=== PATIENT | male | born 1955 | race African-American/Black ===

== ENCOUNTER 2016-10-17 10:04 | Emergency (ER) | payer OTHER, BC ==
[~2016-10-17] VITALS: Ht 188 cm; Wt 122.5 kg
[2016-10-17 10:05] VITALS: BP_SYST 138
[2016-10-17] MEDS ORDERED: NACL 0.9% 1,000 ML IV SCH (10:11)
[2016-10-17] MEDS ORDERED: PREDNISONE 20 MG TABLET PO ONE (10:15)
[2016-10-17] MEDS ORDERED: IPRATROPIUM BROM 0.5 MG/2.5 ML VIAL.NEB (ATROVENT) IH ONE (10:15)
[2016-10-17] MEDS ORDERED: ALBUTEROL SULFATE 0.083% 2.5 MG/3 ML VIAL.NEB IH ONE (10:15)
[2016-10-17] MEDS ORDERED: ACETAMINOPHEN 500 MG TABLET PO ONE (10:30)
[2016-10-17 10:37] LABS: BASOPHILS # (AUTO) 0.1 K/uL (0.0-0.2); EOSINOPHILS % (AUTO) 0.1 % (0.0-4.0); HEMATOCRIT 37.8 % (36-54); HEMOGLOBIN 12.5 g/dL (14.0-18.0); LYMPHOCYTES # (AUTO) 1.4 K/uL (1.0-5.5); LYMPHOCYTES % (AUTO) 13.9 % (20.5-51.5); MEAN CORPUSCULAR HEMOGLOBIN 26 pg (27-31); MEAN CORPUSCULAR HGB CONC 33 % (32-36); MEAN CORPUSCULAR VOLUME 79 fL (79.0-98.0); MONOCYTES # (AUTO) 0.7 K/uL (0.0-1.0); PLATELET COUNT (AUTO) 271 K/uL (130-430); RED CELL DISTRIBUTION WIDTH 13.8 % (9.0-15.0); WHITE BLOOD COUNT (AUTO) 10.2 K/uL (4.8-10.8)
[2016-10-17 11:00] LABS: PROTHROMBIN TIME 11.3 SECS (9.5-12.5)
[2016-10-17 11:02] LABS: CALCIUM 9.4 mg/dL (8.4-11.0); CREATININE 1.73 mg/dL (0.55-1.30); POTASSIUM 3.8 mmol/L (3.5-5.1)
[2016-10-17 11:07] LABS: ALBUMIN 4.6 g/dL (3.4-4.8); TOTAL BILIRUBIN 0.6 mg/dL (0.0-1.0); TOTAL PROTEIN, SERUM 8.8 g/dL (6.4-8.3)
[2016-10-17] MEDS ORDERED: FERR-57 PO (11:21)
[2016-10-17] MEDS ORDERED: BUDE6HFA INH (11:21)
[2016-10-17] MEDS ORDERED: LATA2.5D6 OP (11:21)
[2016-10-17] MEDS ORDERED: FAMO40TA7 PO (11:21)
[2016-10-17] MEDS ORDERED: IPRA4AER INH (11:21)
[2016-10-17] MEDS ORDERED: MONT10TA25 PO (11:21)
[2016-10-17] MEDS ORDERED: ALBMDI INH (11:21)
[2016-10-17] MEDS ORDERED: NOR10 PO (11:21)
[2016-10-17 11:56] VITALS: BP_SYST 146
== END 2016-10-17 11:56 | disposition home or self-care (01) ==
LOC: SED 10:04
DX: J44.9 Chronic obstructive pulmonary disease, unspecified (principal); K21.9 Gastro-esophageal reflux disease without esophagitis; I10 Essential (primary) hypertension
CPT/HCPCS: 36415; 71010; 80053; 83605; 83880; 84484; 85025; 85610; 85730; 87040; 93005; 94640; 96360; 99285; J7030; J7512

== ENCOUNTER 2019-01-22 16:51 | Inpatient (IN) | payer OTHER ==
[~2019-01-22] VITALS: Ht 190.5 cm; Wt 127.2 kg
[~2019-01-22 16:51] MED LIST: ALBMDI INH; BUDE6HFA INH; FAMO40TA7 PO; FERR-57 PO; FLUT1BLS3 INH; FURO-150 PO; IPRA4AER INH; MONT10TA25 PO; NOR10 PO; POTA20TA83 PO; XALEYE OP
[2019-01-22 16:57] VITALS: BP_SYST 130
--- NOTE | 2019-01-22 16:57 | NUR ---
Placed in room 1. Placed on property assessment monitor, blood pressure machine and pulse oximeter. To gown for exam. Side rails up. Report given to Drew LIM.
--- NOTE | 2019-01-22 17:00 | NUR ---
EKG performed at by ADAN. Physician given copy of EKG for review.
--- NOTE | 2019-01-22 17:02 | NUR ---
Pt c/o to ED c/o SOB x 2 wks.Pt febrile, h/o COPD,HTN.
[2019-01-22] MEDS ORDERED: NACL 0.9% 2,000 ML IV ONE (17:06)
--- NOTE | 2019-01-22 17:06 | NUR ---
ER at bedside examining patient.
[2019-01-22] MEDS ORDERED: ACETAMINOPHEN 500 MG TABLET PO ONE (17:15)
[2019-01-22] MEDS ORDERED: IPRATROPIUM/ALBUTEROL SULFATE 3 ML AMPUL.NEB (DUONEB) INH ONE (17:15)
[2019-01-22 17:36] LABS: BASOPHILS # (AUTO) 0.1 K/uL (0.0-0.2); EOSINOPHILS # (AUTO) 0.2 K/uL (0.0-0.4); EOSINOPHILS % (AUTO) 1.2 % (0.0-4.0); HEMOGLOBIN 12.3 g/dL (14.0-18.0); LYMPHOCYTES # (AUTO) 1.5 K/uL (1.0-5.5); LYMPHOCYTES % (AUTO) 11.6 % (20.5-51.5); MEAN CORPUSCULAR HEMOGLOBIN 26 pg (27-31); MEAN CORPUSCULAR HGB CONC 33 % (32-36); MEAN CORPUSCULAR VOLUME 81 fL (79.0-98.0); MONOCYTES # (AUTO) 0.7 K/uL (0.0-1.0); MONOCYTES % (AUTO) 5.5 % (1.7-9.3); NEUTROPHILS # (AUTO) 10.6 K/uL (1.8-7.7); NEUTROPHILS % (AUTO) 80.7 % (40.0-70.0); PLATELET COUNT (AUTO) 331 K/uL (130-430); RED BLOOD CELL COUNT(AUTO) 4.69 MIL/uL (4.2-6.2); RED CELL DISTRIBUTION WIDTH 14.3 % (9.0-15.0); WHITE BLOOD COUNT (AUTO) 13.1 K/uL (4.8-10.8)
[2019-01-22 17:48] LABS: CALCIUM 9.9 mg/dL (8.4-11.0); CREATININE 1.12 mg/dL (0.55-1.30); POTASSIUM 3.5 mmol/L (3.5-5.1)
[2019-01-22 17:51] LABS: INR 0.9 (0.80-1.20); PROTHROMBIN TIME 9.5 SECS (9.5-12.5)
[2019-01-22 18:04] LABS: ALBUMIN 4.3 g/dL (3.4-4.8); TOTAL BILIRUBIN 0.4 mg/dL (0.0-1.0)
[2019-01-22] MEDS ORDERED: TRIA15CR3 TP (18:14)
[2019-01-22] MEDS ORDERED: FERR325T22 PO (18:14)
--- NOTE | 2019-01-22 18:14 | NUR ---
Medication reconciliation completed based upon list provided by family.
[2019-01-22] MEDS ORDERED: cefTRIAXone 1 GM in D5W 50 ML IV ONE (18:30)
[2019-01-22] MEDS ORDERED: AZITHROMYCIN 500 MG in NS 250 ML IV ONE (18:30)
[2019-01-22] MEDS ORDERED: cefTRIAXone 1 GM VIAL ONE (18:41)
[2019-01-22] MEDS ORDERED: AZITHROMYCIN 500 MG/VIAL (ZITHROMAX) IV ONE (18:42)
[2019-01-22] MEDS ORDERED: methylPREDNISolone SOD SUCC/PF 62.5 MG/ML VIAL IVP ONE (19:15)
[2019-01-22 20:05] LABS: BILIRUBIN,URINE NEGATIVE (NEGATIVE); BLOOD, URINE NEGATIVE (NEGATIVE); CLARITY/URINE CLEAR (CLEAR); COLOR,URINE YELLOW (YELLOW); GLUCOSE,URINE NEGATIVE (NEGATIVE); KETONES,URINE NEGATIVE (NEGATIVE); LEUKOCYTE ESTERASE ,URINE NEGATIVE (NEGATIVE); NITRITE, URINE NEGATIVE (NEGATIVE); PROTEIN URINE NEGATIVE (NEGATIVE); UROBILINOGEN,URINE 0.2 (0.2-1.0)
--- NOTE | 2019-01-22 20:09 | NUR ---
Patient will be admitted to care of Dr. Price. Admitted to telemetry unit. Will go to room 110B. Belongings list completed. Summary report printed. Report will be given at bedside.
--- NOTE | 2019-01-22 20:16 | NUR ---
ADMISSION: The patient, BROOK MUELLER, 63 y/o, M admitted by ERIC HOOKS MD,with the diagnosis of COPD EXACERBATION AND PNEUMONIA to 110 B , was given written information regarding hospital policies, unit procedures and contact persons.
--- NOTE | 2019-01-22 20:25 | NUR ---
Transfer to 110b via ACLS protocol. Licensed nurse present. IV present no signs or symptoms of infiltration.
[2019-01-22 20:27] VITALS: BP_SYST 134
[2019-01-22 20:32] VITALS: BP_SYST 138
--- NOTE | 2019-01-22 21:24 | NUR ---
DR. HOOKS CALLED REGARDING PT. ORDERED THAT ATTENDING DOCTOR BE CHANGED TO DR. LUI. NEW ORDERS RECEIVED FOR PT. WILL CARRY OUT.
[2019-01-22] MEDS ORDERED: ACETAMINOPHEN 325 MG TABLET PO PRN (21:30)
[2019-01-22] MEDS: methylPREDNISolone SOD SUCC/PF 62.5 MG/ML VIAL IVP SCH (22:10)
[2019-01-22] MEDS: ALBUTEROL SULFATE 0.083% 2.5 MG/3 ML VIAL.NEB INH PRN (22:21)
[2019-01-22] MEDS: IPRATROPIUM BROM 0.5 MG/2.5 ML VIAL.NEB (ATROVENT) INH PRN (22:21)
[2019-01-22] MEDS: ZOLPIDEM TARTRATE 5 MG TABLET PO PRN (22:43)
--- NOTE | 2019-01-22 22:43 | NUR ---
[facility] PT REQUESTING A SLEEP AID. AMBIEN 5 MG PO ADMINISTERED. MEDICATION ACTION AND POTENTIAL SIDE EFFECTS EXPLAINED TO PT. PT VERBALIZED UNDERSTANDING. PT ENCOURAGED TO CALL FOR ANY ASSISTANCE. SAFETY PRECAUTIONS ARE IN PLACE: BED IS LOCKED IN LOWEST POSITION, SIDE RAILS UP X2, CALL LIGHT IS WITH PT. WILL MONITOR.
[2019-01-22 23:20] VITALS: BP_SYST 138
--- NOTE | 2019-01-23 01:05 | NUR ---
RN ROUNDS PT IS RESTING IN BED WITH EYES CLOSED. VISIBLE SYMMETRICAL RISE AND FALL OF CHEST TO O2 AT 2L VIA NC, BREATHING IS UNLABORED. A SNORE CAN BE HEARD. NO S/S OF ACUTE DISTRESS. NO SIGNS OF PAIN OR DISCOMFORT. SAFETY PRECAUTIONS ARE IN PLACE. WILL MONITOR.
[2019-01-23 01:37] VITALS: BP_SYST 144
--- NOTE | 2019-01-23 03:08 | NUR ---
SLEEPING PT RESTING IN BED WITH EYES CLOSED. PT APPEARS COMFORTABLE. VISIBLE RISE AND FALL OF CHEST, BREATHING IS UNLABORED. NO S/S OF DISTRESS. SAFETY PRECAUTIONS IN PLACE. WILL MONITOR.
[2019-01-23] MEDS: methylPREDNISolone SOD SUCC/PF 62.5 MG/ML VIAL IVP SCH ×2 (05:04→14:22)
--- NOTE | 2019-01-23 05:08 | NUR ---
SCHEDULED SOLU-MEDROL PT GIVEN SCHEDULED SOLU-MEDROL IVP. IV IS PATENT AND FLUSHES WELL. NO S/S OF ACUTE DISTRESS. PT DENIES PAIN OR DISCOMFORT. SAFETY PRECAUTIONS OBSERVED. WILL MONITOR.
--- NOTE | 2019-01-23 06:20 | NUR ---
CLOSING NOTE PT RESTING IN BED, NO S/S OF ACUTE DISTRESS, BREATHING IS UNLABORED TO O2 AT 2L VIA NC, VISIBLE SYMMETRICAL RISE AND FALL OF CHEST. ALL NEEDS MET DURING SHIFT. SAFETY MAINTAINED. WILL CONTINUE TO MONITOR UNTIL PT CARE IS ENDORSED TO DAY SHIFT RN.
[2019-01-23 07:45] LABS: BASOPHILS % (AUTO) 0.2 % (0.0-2.0); HEMATOCRIT 37.4 % (36-54); LYMPHOCYTES # (AUTO) 0.9 K/uL (1.0-5.5); LYMPHOCYTES % (AUTO) 7.4 % (20.5-51.5); MEAN CORPUSCULAR HEMOGLOBIN 27 pg (27-31); MEAN CORPUSCULAR HGB CONC 32 % (32-36); MEAN CORPUSCULAR VOLUME 82 fL (79.0-98.0); MONOCYTES # (AUTO) 0.1 K/uL (0.0-1.0); MONOCYTES % (AUTO) 0.7 % (1.7-9.3); NEUTROPHILS # (AUTO) 11.7 K/uL (1.8-7.7); NEUTROPHILS % (AUTO) 91.7 % (40.0-70.0); PLATELET COUNT (AUTO) 323 K/uL (130-430); RED BLOOD CELL COUNT(AUTO) 4.54 MIL/uL (4.2-6.2); WHITE BLOOD COUNT (AUTO) 12.8 K/uL (4.8-10.8)
[2019-01-23 08:03] VITALS: BP_SYST 155
[2019-01-23] MEDS: PANTOPRAZOLE SODIUM 40 MG TAB PO SCH (08:08)
[2019-01-23] MEDS: amLODIPine BESYLATE 10 MG TABLET PO SCH (08:08)
[2019-01-23] MEDS: FUROSEMIDE 20 MG TABLET PO SCH (08:09)
--- NOTE | 2019-01-23 08:10 | NUR ---
OPENING NOTE patient is resting in bed A&O x4, patient denies any acute distress or pain, no sob, breathing is even and unlabored on room air, educated patient on plan of care and call light system, will continue to monitor, safety precautions in place, call light within reach.
[2019-01-23 08:12] LABS: CALCIUM 9.1 mg/dL (8.4-11.0); CREATININE 1.32 mg/dL (0.55-1.30)
[2019-01-23 08:13] LABS: ALBUMIN 3.6 g/dL (3.4-4.8); TOTAL BILIRUBIN 0.4 mg/dL (0.0-1.0)
[2019-01-23] MEDS: IPRATROPIUM BROM 0.5 MG/2.5 ML VIAL.NEB (ATROVENT) INH PRN (08:22)
[2019-01-23] MEDS: ALBUTEROL SULFATE 0.083% 2.5 MG/3 ML VIAL.NEB INH PRN (08:23)
--- NOTE | 2019-01-23 10:16 | NUR ---
ROUNDS DR. Hernandez talking to patient and family in room at this time.
--- NOTE | 2019-01-23 12:11 | NUR ---
NOTES patient resting in bed eating lunch, patient denies any acute distress or sob at this time, breathing is even and unlabored on room air, will continue to monitor, safety precautions in place, call light within reach.
[2019-01-23 12:31] VITALS: BP_SYST 131
--- NOTE | 2019-01-23 13:52 | NUR ---
CONSULT PULMONOLOGY COPD DR NGO [phone] S/W JULIEN EXCHANGE
--- NOTE | 2019-01-23 14:30 | NUR ---
NOTES patient resting in chair at bedside playing on ipad, patient denies any acute distress or pain, breathing is even and unlabored on room air, will continue to monitor, safety precautions in place, call light within reach, family at bedside.
[2019-01-23 16:15] VITALS: BP_SYST 132
--- NOTE | 2019-01-23 16:22 | NUR ---
NOTES patient is resting in bed talking to family, patient denies any acute distress or sob, breathing is even and unlabored on room air, will continue to monitor, safety precautions in place, and daughter at bedside, call light within reach.
--- NOTE | 2019-01-23 18:42 | NUR ---
CLOSING NOTE patient is resting in bed A&O x4, patient denies any acute distress or pain, breathing is even and unlabored on room air, IVPB infusing as ordered, all needs were met throughout shift, will endorse report to oncoming nurse, safety precautions in place, call light within reach.
[2019-01-23] MEDS ORDERED: AZITHROMYCIN 500 MG in NS 250 ML IV SCH (19:00)
[2019-01-23] MEDS: IPRATROPIUM/ALBUTEROL SULFATE 3 ML AMPUL.NEB (DUONEB) INH SCH (19:22)
--- NOTE | 2019-01-23 19:39 | NUR ---
Pt was received lying in bed fully awake, alert and oriented x4. No acute distress noted at this time. Saline lock in LAC is without any signs of infiltration. Fall and safety precautions are in place.
[2019-01-23 20:00] VITALS: BP_SYST 129
[2019-01-23] MEDS ORDERED: cefTRIAXone 1 GM in D5W 50 ML IV SCH (20:00)
[2019-01-23] MEDS: methylPREDNISolone SOD SUCC 40 MG/ML VIAL IVP SCH (21:20)
[2019-01-23] MEDS: HEPARIN SODIUM,PORCINE 5000 UNITS/ML VIAL SUBCUT SCH (21:23)
--- NOTE | 2019-01-23 21:23 | NUR ---
HS medications administered and pt instructed not to rub the SQ Heparin site due to bruising. Pt verbalized understanding.
[2019-01-23] MEDS: ZOLPIDEM TARTRATE 5 MG TABLET PO PRN (23:28)
--- NOTE | 2019-01-23 23:28 | NUR ---
Ambien 5mg was given po per pt's request for sleep. Call light is with pt and bed is in the lowest and locked positions. Pt was instructed to call for assistance before getting out of bed if dizzy or drowsy and pt verbalized understanding. Oxygen on 2L/min applied to pt's nares per his request.
[2019-01-24] MEDS: IPRATROPIUM/ALBUTEROL SULFATE 3 ML AMPUL.NEB (DUONEB) INH SCH ×3 (01:00→13:27)
--- NOTE | 2019-01-24 02:36 | NUR ---
Pt is sleeping without any distress noted. Call light is with pt and bed is in the lowest and locked positions.
[2019-01-24 02:39] VITALS: BP_SYST 136
--- NOTE | 2019-01-24 04:30 | NUR ---
Pt is sleeping comfortably in bed. Saline lock is intact in LAC.
[2019-01-24] MEDS: methylPREDNISolone SOD SUCC 40 MG/ML VIAL IVP SCH (06:06)
[2019-01-24 06:14] LABS: BASOPHILS % (AUTO) 0.1 % (0.0-2.0); HEMATOCRIT 35.2 % (36-54); HEMOGLOBIN 11.3 g/dL (14.0-18.0); LYMPHOCYTES % (AUTO) 4.4 % (20.5-51.5); MEAN CORPUSCULAR HEMOGLOBIN 26 pg (27-31); MEAN CORPUSCULAR HGB CONC 32 % (32-36); MEAN CORPUSCULAR VOLUME 82 fL (79.0-98.0); MONOCYTES # (AUTO) 0.6 K/uL (0.0-1.0); MONOCYTES % (AUTO) 2.5 % (1.7-9.3); NEUTROPHILS # (AUTO) 21.2 K/uL (1.8-7.7); PLATELET COUNT (AUTO) 345 K/uL (130-430); RED CELL DISTRIBUTION WIDTH 14.1 % (9.0-15.0); WHITE BLOOD COUNT (AUTO) 22.8 K/uL (4.8-10.8)
--- NOTE | 2019-01-24 06:49 | NUR ---
Pt is awake and alert. No c/o pain or discomfort at this time. Saline lock in LAC is without any signs of infiltration. Will endorse to day shift nurse.
[2019-01-24 06:57] LABS: CALCIUM 9.2 mg/dL (8.4-11.0); CREATININE 1.15 mg/dL (0.55-1.30); POTASSIUM 4.3 mmol/L (3.5-5.1)
[2019-01-24 08:02] VITALS: BP_SYST 143
--- NOTE | 2019-01-24 08:10 | NUR ---
OPENING NOTE patient is resting in bed A&O x4, patient denies any acute distress or pain, no sob, breathing is even and unlabored on 2L nasal cannula, educated patient on plan of care and call light system, will continue to monitor, safety precautions in place, call light within reach.
[2019-01-24] MEDS: PANTOPRAZOLE SODIUM 40 MG TAB PO SCH (08:19)
[2019-01-24] MEDS: FUROSEMIDE 20 MG TABLET PO SCH (08:19)
[2019-01-24] MEDS: amLODIPine BESYLATE 10 MG TABLET PO SCH (08:20)
[2019-01-24] MEDS: HEPARIN SODIUM,PORCINE 5000 UNITS/ML VIAL SUBCUT SCH (08:21)
[2019-01-24] MEDS ORDERED: methylPREDNISolone SOD SUCC 40 MG/ML VIAL IVP SCH (09:00)
--- NOTE | 2019-01-24 10:40 | NUR ---
NOTES patient talking on phone at this time, patient denies any acute distress or pain, breathing is even and unlabored on room air, will continue to monitor, safety precautions in place, call light within reach.
--- NOTE | 2019-01-24 12:52 | NUR ---
NOTES patient is talking to family in bed, patient denies any acute distress or pain, no sob at this time, breathing is even and unlabored on room air, will continue to monitor, safety precautions in place, call light within reach.
[2019-01-24 14:06] VITALS: BP_SYST 126
--- NOTE | 2019-01-24 14:51 | NUR ---
NOTES patient watching tv, patient denies any acute distress or pain, breathing is even and unlabored on room air, will continue to monitor, safety precautions in place, call light within reach.
[2019-01-24 16:08] VITALS: BP_SYST 129
--- NOTE | 2019-01-24 16:32 | NUR ---
SPOKE TO DR. HALL PER , PATIENT IS CLEARED TO BE DISCHARGED HOME AND TO FOLLOW UP WITH TRANSCRIPTION.
[2019-01-24 16:45] VITALS: BP_SYST 129
[2019-01-24] MEDS ORDERED: AUG875 PO (16:52)
[2019-01-24] MEDS ORDERED: PRED20TA PO (16:52)
--- NOTE | 2019-01-24 17:15 | NUR ---
D/C Patient Patient given medication reconciliation form and D/C instructions. Exit Care provided. Patient verbalized understanding. MD discussed with patient the results and treatment provided. Ambulatory with steady gait for discharge to home. Patient in stable condition, ID band removed. IV catheter removed, intact and dressing applied, no active bleeding. Rx of augmentin and prednisone given. Patient educated on pain management. All belongings sent with patient.
--- NOTE | 2019-01-24 20:15 | NUR ---
OF THE PATIENT CALLED REGARDING HOME MEDS MRS MUELLER CALLED AND VERY UPSET BECAUSE SHE FOUND OUT THAT THE PATIENT HOME MED LIST IS INCOMPLETE. SHE SAID THAT SHE GAVE THE LIST TO RN IN THE EMERGENCY ROOM AND STILL MED LIST IS NOT UPDATED. WANTS TO KNOW IF THE PATIENT NEEDS TO CONTINUE THE POTTASIUM 20MEQ ER PO DAILY. NOTIFIED DR LUI AND MADE AWARE ABOUT THE MEDS NOT ON THE LIST, HE SAID TO CONTINUE THE POTTASIUM, MRS. MUELLER MADE AWARE.
--- NOTE | 2019-02-07 11:14 | NUR ---
DISCHARGE FOLLOW UP PHONE CALL ALYSA/HEDY TECH PHONED PATIENT, [phone]. 3 CALLS ATTEMPTED AND UNABLE TO GET A HOLD OF PATIENT. LEFT VOICEMAILS ON 01/29/19, 02/06/19, 02/07/19.
--- NOTE | 2019-02-08 11:43 | NUR ---
DISCHARGE FOLLOW UP PHONE CALL CM/HEDY PUENTES PHONED PATIENT. PATIENT STATED HE IS FEELING BETTER. HE HAS NO QUESTIONS ABOUT HIS DISCHARGE INSTRUCTIONS. HE FILLED HIS PRESCRIPTION AND TOOK THEM INSTRUCTED. HE HAS NOT FOLLOWED UP WITH HIS PCP BUT WILL BE CALLING, NEEDS NO HELP SETTING UP APPOINTMENT WILL CALL IF NEEDING ASSISTANCE. HE HAS NO QUESTIONS OR CONCERNS. HE WILL CALL HOSPITAL IF HE HAS QUESTIONS IN THE FUTURE.
== END 2019-01-24 17:15 | disposition home or self-care (01) | DRG 189 ==
LOC: SED 16:51 → STU 19:40 → SMU 01-23 11:18
PROVIDERS: ADMIT Internal Medicine Hospice and Palliative Medicine; ATTEND Internal Medicine Hospice and Palliative Medicine
DX: J96.20 Acute and chronic respiratory failure, unspecified whether with hypoxia or hypercapnia (principal); J44.1 Chronic obstructive pulmonary disease with (acute) exacerbation; R65.10 Systemic inflammatory response syndrome (SIRS) of non-infectious origin without acute organ dysfunction; J44.0 Chronic obstructive pulmonary disease with (acute) lower respiratory infection; I10 Essential (primary) hypertension; Z79.899 Other long term (current) drug therapy; K21.9 Gastro-esophageal reflux disease without esophagitis; F12.20 Cannabis dependence, uncomplicated; Z99.81 Dependence on supplemental oxygen; M19.90 Unspecified osteoarthritis, unspecified site; Z87.442 Personal history of urinary calculi; Z86.011 Personal history of benign neoplasm of the brain; Z87.891 Personal history of nicotine dependence
CPT/HCPCS: 36415; 71045; 80048; 80053; 81003; 83605; 84484; 85025; 85610-TC; 85730-TC; 87040-TC; 87086; 93005; 94640; 94760; 96361; 96365; 96367; 96375; 99285; G0378; J0456; J0696; J1030; J1644; J2930; J7030; J7050; J7060; J7613; J7620

== ENCOUNTER 2019-05-22 21:28 | Emergency (ER) | payer OTHER ==
[~2019-05-22] VITALS: Ht 190.5 cm; Wt 131.5 kg
[~2019-05-22 21:28] MED LIST changes: -ALBMDI INH; +AUG875 PO; -BUDE6HFA INH; -FERR-57 PO; -FLUT1BLS3 INH; -IPRA4AER INH; -MONT10TA25 PO; -POTA20TA83 PO; +PRED20TA PO; -XALEYE OP
[2019-05-22 21:30] VITALS: BP_SYST 158
--- NOTE | 2019-05-22 21:30 | NUR ---
Patient triaged and placed in waiting room. VSS and patient appears in no acute distress at this time. Accompanied by FAM MEMBER, awaiting available bed, and MD notified of need for MSE.
[2019-05-22] MEDS ORDERED: IPRATROPIUM/ALBUTEROL SULFATE 3 ML AMPUL.NEB (DUONEB) INH ONE (22:00)
--- NOTE | 2019-05-22 22:00 | NUR ---
Placed in room 6 . Placed on security monitor, blood pressure machine and pulse oximeter. To gown for exam. Side rails up. Report given to ESTHER LIM.
--- NOTE | 2019-05-22 22:00 | NUR ---
ER at bedside examining patient.
--- NOTE | 2019-05-22 22:10 | NUR ---
Pt brought in by . Pt awake, alert, oriented x4. Pt states that he has had exacerbation of respiratory issue that he has pre-existing. Pt states shortness of breath, fast breathing. Pt denies chest pain, nausea, vomiting, diarrhea. Pt denies any other medical complaint at this time. Pt resting in ED bed comfortably, no acute distress noted at this time. VSS
[2019-05-22 22:37] LABS: BASOPHILS # (AUTO) 0.1 K/uL (0.0-0.2); BASOPHILS % (AUTO) 0.9 % (0.0-2.0); EOSINOPHILS # (AUTO) 0.2 K/uL (0.0-0.4); EOSINOPHILS % (AUTO) 1.3 % (0.0-4.0); HEMATOCRIT 37.3 % (36-54); HEMOGLOBIN 12.1 g/dL (14.0-18.0); LYMPHOCYTES # (AUTO) 1.7 K/uL (1.0-5.5); LYMPHOCYTES % (AUTO) 13.7 % (20.5-51.5); MEAN CORPUSCULAR HEMOGLOBIN 27 pg (27-31); MEAN CORPUSCULAR HGB CONC 33 % (32-36); MEAN CORPUSCULAR VOLUME 82 fL (79.0-98.0); MONOCYTES # (AUTO) 0.8 K/uL (0.0-1.0); MONOCYTES % (AUTO) 6.4 % (1.7-9.3); NEUTROPHILS # (AUTO) 9.5 K/uL (1.8-7.7); NEUTROPHILS % (AUTO) 77.7 % (40.0-70.0); PLATELET COUNT (AUTO) 288 K/uL (130-430); RED BLOOD CELL COUNT(AUTO) 4.57 MIL/uL (4.2-6.2); RED CELL DISTRIBUTION WIDTH 13.9 % (9.0-15.0); WHITE BLOOD COUNT (AUTO) 12.2 K/uL (4.8-10.8)
[2019-05-22 22:49] LABS: ANION GAP 5 (5-15); CALCIUM 9.2 mg/dL (8.4-11.0); CHLORIDE 103 mmol/L (98-107); CREATININE 1.17 mg/dL (0.55-1.30); GLUCOSE 122 mg/dL (70-99); POTASSIUM 3.6 mmol/L (3.5-5.1); SODIUM SERUM 139 mmol/L (136-145); UREA NITROGEN, BLOOD 14 mg/dL (8-21)
[2019-05-22 22:58] LABS: ALANINE AMINOTRANSFERASE 33 U/L (12-78); ALBUMIN 4.4 g/dL (3.4-4.8); ASPARTATE AMINOTRANSFERASE 21 U/L (10-37); TOTAL BILIRUBIN 0.4 mg/dL (0.0-1.0)
[2019-05-22 23:02] LABS: GFR AFRICAN AMERICAN 80 mL/min (>90)
--- NOTE | 2019-05-22 23:45 | NUR ---
Pt awake, alert, oriented. No acute distress noted at this time
[2019-05-23] MEDS ORDERED: methylPREDNISolone SOD SUCC/PF 62.5 MG/ML VIAL IM ONE (00:30)
[2019-05-23 01:40] VITALS: BP_SYST 150
--- NOTE | 2019-05-23 01:40 | NUR ---
Patient given written and verbal discharge instructions and verbalizes understanding. ER MD discussed with patient the results and treatment provided. Patient in stable condition. ID arm band removed. NO IV Rx of Prednisone and Zithromax given. Patient educated on pain management and to follow up with PMD. Pain Scale 0/10. Opportunity for questions provided and answered. Medication side effect fact sheet provided.
== END 2019-05-23 01:40 | disposition home or self-care (01) ==
LOC: SED 21:28
DX: J44.1 Chronic obstructive pulmonary disease with (acute) exacerbation (principal); J45.901 Unspecified asthma with (acute) exacerbation; J06.9 Acute upper respiratory infection, unspecified; K21.9 Gastro-esophageal reflux disease without esophagitis; I10 Essential (primary) hypertension; Z79.899 Other long term (current) drug therapy
CPT/HCPCS: 36415; 71045; 80053; 83880; 84484; 85025; 85379; 93005; 94640; 96372; 99284; J2930; J7620

== ENCOUNTER 2019-11-08 22:18 | Emergency (ER) | payer OTHER, SELFPAY ==
[~2019-11-08] VITALS: Ht 190.5 cm; Wt 127.0 kg
[2019-11-08 22:21] VITALS: BP_SYST 146
--- NOTE | 2019-11-08 22:25 | NUR ---
Placed in room 4 . Placed on phototypesetting equipment monitor, blood pressure machine and pulse oximeter. To gown for exam. Side rails up. Report given to LISA LIM.
--- NOTE | 2019-11-08 22:31 | NUR ---
ER at bedside examining patient.
--- NOTE | 2019-11-08 22:34 | NUR ---
patient BIB BLS from home complaining of shortness of breath and throat tightness. patient reports sitting in his recliner chair when symptoms began and he checked his o2 sat and it was at 82%. patient then called 911. Denies fever, chest pain, cough,nausea,vomiting. patient hx of COPD, emphysema, bronchitis, asthma, and 3L O2 NC at home.
--- NOTE | 2019-11-08 22:36 | NUR ---
PATIENT MOVED TO ER BED 8 FOR ISOLATION PRECAUTIONS.
[2019-11-08] MEDS ORDERED: IPRATROPIUM/ALBUTEROL SULFATE 3 ML AMPUL.NEB (DUONEB) INH ONE (23:00)
--- NOTE | 2019-11-08 23:00 | NUR ---
# 20 gauge angiocath placed to RAC. Use of asceptic technique. Opsite placed over site. Blood return noted. Blood for lab drawn from site. Flushed with 10 cc of normal saline. No evidence of infiltration noted. Patient tolerated well.
--- NOTE | 2019-11-08 23:05 | NUR ---
Xray at bedside.
--- NOTE | 2019-11-08 23:13 | NUR ---
COVID SWAB SENT TO LAB.
--- NOTE | 2019-11-08 23:15 | NUR ---
RESPIRATORY THERAPY AT BEDSIDE.
[2019-11-08 23:19] LABS: BASOPHILS # (AUTO) 0.1 K/uL (0.0-0.2); BASOPHILS % (AUTO) 1.8 % (0.0-2.0); EOSINOPHILS # (AUTO) 0.5 K/uL (0.0-0.4); EOSINOPHILS % (AUTO) 8.2 % (0.0-4.0); HEMATOCRIT 36.6 % (36-54); HEMOGLOBIN 11.8 g/dL (14.0-18.0); LYMPHOCYTES # (AUTO) 2.1 K/uL (1.0-5.5); MEAN CORPUSCULAR HEMOGLOBIN 26 pg (27-31); MEAN CORPUSCULAR HGB CONC 32 % (32-36); MEAN CORPUSCULAR VOLUME 80 fL (79.0-98.0); MONOCYTES # (AUTO) 0.5 K/uL (0.0-1.0); MONOCYTES % (AUTO) 9.2 % (1.7-9.3); NEUTROPHILS # (AUTO) 2.4 K/uL (1.8-7.7); NEUTROPHILS % (AUTO) 42.8 % (40.0-70.0); PLATELET COUNT (AUTO) 331 K/uL (130-430); RED BLOOD CELL COUNT(AUTO) 4.55 MIL/uL (4.2-6.2); RED CELL DISTRIBUTION WIDTH 13.2 % (9.0-15.0); WHITE BLOOD COUNT (AUTO) 5.5 K/uL (4.8-10.8)
[2019-11-08 23:27] LABS: ANION GAP 5 (5-15); CALCIUM 8.9 mg/dL (8.4-11.0); CHLORIDE 101 mmol/L (98-107); CREATININE 1.13 mg/dL (0.55-1.30); GLUCOSE 125 mg/dL (70-99); POTASSIUM 3.1 mmol/L (3.5-5.1); SODIUM SERUM 139 mmol/L (136-145); UREA NITROGEN, BLOOD 11 mg/dL (8-21)
--- NOTE | 2019-11-08 23:34 | NUR ---
SPOKE WITH PATIENT WITH PATIENTS , NANCY, REGARDING CARE OF PATIENT.
[2019-11-08 23:45] LABS: ALANINE AMINOTRANSFERASE 41 U/L (12-78); ALBUMIN 4.2 g/dL (3.4-4.8); ASPARTATE AMINOTRANSFERASE 36 U/L (10-37); TOTAL BILIRUBIN 0.3 mg/dL (0.0-1.0)
[2019-11-08 23:46] LABS: GFR AFRICAN AMERICAN 84 mL/min (>90)
--- NOTE | 2019-11-09 00:11 | NUR ---
PATIENT RESTING IN BED. VITAL SIGNS STABLE. NO SIGNS OF DISTRESS.
[2019-11-09] MEDS ORDERED: methylPREDNISolone SOD SUCC/PF 62.5 MG/ML VIAL IVP ONE (01:00)
--- NOTE | 2019-11-09 01:27 | NUR ---
PATIENT STATES HE DOES NOT HAVE PAIN AT THIS MOMENT AND HIS BREATHING SEEMS TO HAVE IMPROVED. PATIENT REQUESTING BLANKET, VITAL SIGNS STABLE
[2019-11-09] MEDS ORDERED: hydrALAZINE HCL 20 MG/ML VIAL IVP ONE (01:30)
--- NOTE | 2019-11-09 01:59 | NUR ---
PATIENTS BP 160/75. MD NOTIFIED, PER MD REQUEST, HYDRALAZINE 10 MG NOT GIVEN.
[2019-11-09 02:25] VITALS: BP_SYST 142
--- NOTE | 2019-11-09 02:25 | NUR ---
Patient given written and verbal discharge instructions and verbalizes understanding. ER MD discussed with patient the results and treatment provided. Patient in stable condition. ID arm band removed. IV catheter removed intact and dressing applied, no active bleeding. Rx of ZPAK AND PREDNISONE given. Patient educated on pain management and to follow up with PMD. Pain Scale 0/10. Opportunity for questions provided and answered. Medication side effect fact sheet provided.
== END 2019-11-09 02:25 | disposition home or self-care (01) ==
LOC: EEVIPCON 22:18 → SED 22:18
DX: J45.901 Unspecified asthma with (acute) exacerbation (principal); J20.9 Acute bronchitis, unspecified; J43.9 Emphysema, unspecified; K21.9 Gastro-esophageal reflux disease without esophagitis; I10 Essential (primary) hypertension; Z79.899 Other long term (current) drug therapy; Z20.828 Contact with and (suspected) exposure to other viral communicable diseases
CPT/HCPCS: 71045; 80053; 84484; 85025; 85379; 93005; 96374; 99285; J0360; J2930; U0003

== ENCOUNTER 2020-03-18 20:22 | Emergency (ER) | payer OTHER, SELFPAY ==
[~2020-03-18] VITALS: Ht 190.5 cm; Wt 124.7 kg
--- NOTE | 2020-03-18 20:29 | NUR ---
Patient to ER bed 8 to gown for evaluation. Side rails up.
--- NOTE | 2020-03-18 20:30 | NUR ---
PT A&O X4 C/O OF SHORTNESS OF BREATH, COUGH, FEVER X 3DAYS, LIGHTHEADNESS, AND NAUSEA. PT STATES HE TOOK HIS FEVER AT HOME AND IT WAS 102. PT IS NORMALLY ON 4L OF O2 AT HOME & NOTICED HIS O2 SAT WAS AROUND 90% WHICH IS LOWER THAN NORMAL. PT STATES HE WAS EXPERIENCING CHILLS AT HOME. PT HX OF COPD. PT REPORTS FEELING "MORE OUT OF BREATH" WHEN WALKING. PT DENIES CHANGE IN BOWEL HABITS, CHANGE IN SENSE OF TASTE/SMELL, TROUBLE URINATING.
--- NOTE | 2020-03-18 20:35 | NUR ---
ER Dr. VARELA at bedside examining patient.
[2020-03-18 20:36] VITALS: BP_SYST 151
[2020-03-18] MEDS ORDERED: BUDE6HFA INH (20:37)
[2020-03-18] MEDS ORDERED: MONT10TA27 PO (20:40)
[2020-03-18] MEDS ORDERED: POTA-88 PO (20:40)
[2020-03-18] MEDS ORDERED: DORZ10DR20 OP (20:40)
[2020-03-18] MEDS ORDERED: FERR325T22 PO (20:40)
[2020-03-18] MEDS ORDERED: ALBU8.5H8 INH (20:40)
--- NOTE | 2020-03-18 20:40 | NUR ---
Medication reconciliation completed with information provided by PATIENT. Any prior medication reconciliation on file was reviewed and corrected.
[2020-03-18] MEDS ORDERED: methylPREDNISolone SOD SUCC/PF 62.5 MG/ML VIAL IVP ONE (21:00)
[2020-03-18] MEDS ORDERED: IPRATROPIUM/ALBUTEROL SULFATE 3 ML AMPUL.NEB (DUONEB) INH ONE (21:00)
[2020-03-18] MEDS ORDERED: FUROSEMIDE 40 MG/4 ML VIAL IVP ONE (21:00)
--- NOTE | 2020-03-18 21:20 | NUR ---
# 20 gauge angiocath placed to RAC. Use of asceptic technique. Opsite placed over site. Blood return noted. Blood, blood cultures, lacitc for lab drawn from site. Flushed with 10 cc of normal saline. No evidence of infiltration noted. Patient tolerated well.
--- NOTE | 2020-03-18 21:29 | NUR ---
xray at bedside for chest xray
--- NOTE | 2020-03-18 21:35 | NUR ---
covid swab & flu collected and sent to lab.
--- NOTE | 2020-03-18 21:40 | NUR ---
respiratory at bedside for breathing treatment.
--- NOTE | 2020-03-18 21:41 | NUR ---
pt medicated per md orders. pt tolerated well.a
[2020-03-18 21:49] LABS: BASOPHILS # (AUTO) 0.1 K/uL (0.0-0.2); EOSINOPHILS # (AUTO) 0.3 K/uL (0.0-0.4); EOSINOPHILS % (AUTO) 2.4 % (0.0-4.0); HEMATOCRIT 32.7 % (36-54); HEMOGLOBIN 10.6 g/dL (14.0-18.0); LYMPHOCYTES # (AUTO) 1.5 K/uL (1.0-5.5); LYMPHOCYTES % (AUTO) 11.4 % (20.5-51.5); MEAN CORPUSCULAR HEMOGLOBIN 26 pg (27-31); MEAN CORPUSCULAR HGB CONC 32 % (32-36); MEAN CORPUSCULAR VOLUME 81 fL (79.0-98.0); MONOCYTES % (AUTO) 8.1 % (1.7-9.3); NEUTROPHILS # (AUTO) 9.9 K/uL (1.8-7.7); NEUTROPHILS % (AUTO) 77.1 % (40.0-70.0); PLATELET COUNT (AUTO) 299 K/uL (130-430); RED BLOOD CELL COUNT(AUTO) 4.07 MIL/uL (4.2-6.2); RED CELL DISTRIBUTION WIDTH 13.2 % (9.0-15.0); WHITE BLOOD COUNT (AUTO) 12.8 K/uL (4.8-10.8)
[2020-03-18 21:59] LABS: ANION GAP 3 (5-15); CALCIUM 9.1 mg/dL (8.4-11.0); CHLORIDE 99 mmol/L (98-107); CREATININE 1.09 mg/dL (0.55-1.30); GLUCOSE 112 mg/dL (70-99); POTASSIUM 3.3 mmol/L (3.5-5.1); SODIUM SERUM 138 mmol/L (136-145); UREA NITROGEN, BLOOD 10 mg/dL (8-21)
[2020-03-18 22:08] LABS: ALANINE AMINOTRANSFERASE 27 U/L (12-78); ALBUMIN 3.8 g/dL (3.4-4.8); ASPARTATE AMINOTRANSFERASE 24 U/L (10-37); TOTAL BILIRUBIN 0.4 mg/dL (0.0-1.0)
[2020-03-18 22:10] LABS: GFR AFRICAN AMERICAN 87 mL/min (>90)
--- NOTE | 2020-03-18 22:56 | NUR ---
Patient given written and verbal discharge instructions and verbalizes understanding. ER MD discussed with patient the results and treatment provided. Patient in stable condition. ID arm band removed. IV catheter removed intact and dressing applied, no active bleeding. Rx of prednisone and inhalaer given. Patient educated on pain management and to follow up with PMD. Pain Scale 0/10. Opportunity for questions provided and answered. Medication side effect fact sheet provided.
[2020-03-18 23:02] VITALS: BP_SYST 134
== END 2020-03-18 23:02 | disposition home or self-care (01) ==
LOC: SED 20:22
DX: J45.901 Unspecified asthma with (acute) exacerbation (principal); K21.9 Gastro-esophageal reflux disease without esophagitis; I10 Essential (primary) hypertension; J44.9 Chronic obstructive pulmonary disease, unspecified; Z79.899 Other long term (current) drug therapy; Z20.828 Contact with and (suspected) exposure to other viral communicable diseases
CPT/HCPCS: 36415; 71045; 80053; 83880; 84484; 85025; 86710; 87426; 93005; 94640; 96374; 96375; 99285; J1940; J2930

== ENCOUNTER 2020-06-02 05:25 | Emergency (ER) | payer OTHER, SELFPAY ==
[~2020-06-02] VITALS: Ht 190.5 cm; Wt 129.3 kg
[~2020-06-02 05:25] MED LIST changes: +ALBU8.5H8 INH; -AUG875 PO; +BUDE6HFA INH; +DORZ10DR20 OP; +FERR325T22 PO; +MONT10TA27 PO; +POTA-88 PO; -PRED20TA PO
[2020-06-02 05:45] VITALS: BP_SYST 144
--- NOTE | 2020-06-02 05:45 | NUR ---
Pt bib family c/o high BP at home, claimed BP 190/100 and headache. He and his also stated that he has had a continuous AVITIA for 1 week. 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 No nausea, vomiting, or blurry vision reported. Pt breathing easy with oxygen dependency at 4LPM. Pt ambulatory with steady gait however needs a little help to move his oxygen. Pt's BP is 144/80 in triage.
--- NOTE | 2020-06-02 05:50 | NUR ---
Patient triaged and placed in waiting room. VSS and patient appears in no acute distress at this time. Accompanied by family, awaiting available bed, and MD notified of need for MSE.
--- NOTE | 2020-06-02 06:12 | NUR ---
ER has seen patient in triage.
--- NOTE | 2020-06-02 06:58 | NUR ---
Patient has gone to CT as ordered accompanied by tech
[2020-06-02 07:59] LABS: BASOPHILS # (AUTO) 0.1 K/uL (0.0-0.2); BASOPHILS % (AUTO) 1.9 % (0.0-2.0); EOSINOPHILS # (AUTO) 0.6 K/uL (0.0-0.4); EOSINOPHILS % (AUTO) 8.9 % (0.0-4.0); HEMATOCRIT 34.7 % (36-54); LYMPHOCYTES # (AUTO) 2.2 K/uL (1.0-5.5); LYMPHOCYTES % (AUTO) 34.4 % (20.5-51.5); MEAN CORPUSCULAR HEMOGLOBIN 26 pg (27-31); MEAN CORPUSCULAR HGB CONC 32 % (32-36); MEAN CORPUSCULAR VOLUME 81 fL (79.0-98.0); MONOCYTES # (AUTO) 0.6 K/uL (0.0-1.0); MONOCYTES % (AUTO) 9.7 % (1.7-9.3); NEUTROPHILS # (AUTO) 2.9 K/uL (1.8-7.7); NEUTROPHILS % (AUTO) 45.1 % (40.0-70.0); PLATELET COUNT (AUTO) 323 K/uL (130-430); RED BLOOD CELL COUNT(AUTO) 4.29 MIL/uL (4.2-6.2); RED CELL DISTRIBUTION WIDTH 12.8 % (9.0-15.0); WHITE BLOOD COUNT (AUTO) 6.4 K/uL (4.8-10.8)
[2020-06-02 08:21] VITALS: BP_SYST 128
--- NOTE | 2020-06-02 08:21 | NUR ---
Patient given written and verbal discharge instructions and verbalizes understanding. ER MD discussed with patient the results and treatment provided. Patient in stable condition. ID arm band removed. Rx of TRAMADOL given. Patient educated on pain management and to follow up with PMD. Pain Scale 0/10. Opportunity for questions provided and answered. Medication side effect fact sheet provided.
[2020-06-02 08:50] LABS: CALCIUM 9.1 mg/dL (8.4-11.0); CREATININE 1.05 mg/dL (0.55-1.30)
[2020-06-02 08:56] LABS: ALBUMIN 4.2 g/dL (3.4-4.8); TOTAL BILIRUBIN 0.3 mg/dL (0.0-1.0)
== END 2020-06-02 08:21 | disposition home or self-care (01) ==
LOC: SED 05:25
DX: G44.209 Tension-type headache, unspecified, not intractable (principal); I16.0 Hypertensive urgency; I10 Essential (primary) hypertension; K21.9 Gastro-esophageal reflux disease without esophagitis; J44.9 Chronic obstructive pulmonary disease, unspecified; Z79.899 Other long term (current) drug therapy
CPT/HCPCS: 36415; 70450-TC; 76376; 80053; 85025; 99284

== ENCOUNTER 2021-07-01 01:42 | Emergency (ER) | payer OTHER, SELFPAY ==
[~2021-07-01] VITALS: Ht 190.5 cm; Wt 115.7 kg
[2021-07-01 01:42] VITALS: BP_SYST 156
[~2021-07-01 01:42] MED LIST changes: -FAMO40TA7 PO; +FERR324T22 PO; -FERR325T22 PO; -MONT10TA27 PO
--- NOTE | 2021-07-01 01:55 | NUR ---
Pt placed to ER bed 07.
--- NOTE | 2021-07-01 02:00 | NUR ---
Pt BIB ambulance with c/o SOB upon awakening. Pt AAOx4, SPO2 92% RA, respirations even and non-labored. Pt placed on O2 at 2 LPM/NC and SPO2 improves to 98%.
--- NOTE | 2021-07-01 02:25 | NUR ---
ER at bedside examining patient.
[2021-07-01] MEDS ORDERED: LevALBUTEROL HCL 1.25 MG/0.5 ML *CONC.* VIAL.NEB (XOPENEX CONC.) INH ONE ×2 (02:30→04:45)
[2021-07-01] MEDS ORDERED: IPRATROPIUM BROM 0.5 MG/2.5 ML VIAL.NEB (ATROVENT) INH ONE (02:30)
--- NOTE | 2021-07-01 03:30 | NUR ---
Pt states that he feels tightness in his neck. Respirations even and non-labored, SPO2 at 98% on O2 at 2 LPM/NC. Pt requests another breathing tx. Dr. Redman at bedside to assess pt.
[2021-07-01] MEDS ORDERED: methylPREDNISolone SOD SUCC/PF 62.5 MG/ML VIAL IVP ONE (04:45)
--- NOTE | 2021-07-01 05:15 | NUR ---
Pt verbalizes improvement in symptoms and states that he is ready to go home. VSS, NAD. Dr. Redman notified.
--- NOTE | 2021-07-01 05:40 | NUR ---
Dr. Redman at bedside.
[2021-07-01] MEDS ORDERED: PRED20TA PO (05:45)
[2021-07-01 05:58] LABS: BASOPHILS # (AUTO) 0.1 K/uL (0.0-0.2); BASOPHILS % (AUTO) 1.1 % (0.0-2.0); EOSINOPHILS # (AUTO) 0.2 K/uL (0.0-0.4); EOSINOPHILS % (AUTO) 2.7 % (0.0-4.0); HEMATOCRIT 32.8 % (36-54); HEMOGLOBIN 10.7 g/dL (14.0-18.0); LYMPHOCYTES # (AUTO) 2.1 K/uL (1.0-5.5); LYMPHOCYTES % (AUTO) 29.1 % (20.5-51.5); MEAN CORPUSCULAR HEMOGLOBIN 26 pg (27-31); MEAN CORPUSCULAR HGB CONC 33 % (32-36); MEAN CORPUSCULAR VOLUME 79 fL (79.0-98.0); MONOCYTES # (AUTO) 0.5 K/uL (0.0-1.0); MONOCYTES % (AUTO) 7.5 % (1.7-9.3); NEUTROPHILS # (AUTO) 4.2 K/uL (1.8-7.7); NEUTROPHILS % (AUTO) 59.6 % (40.0-70.0); PLATELET COUNT (AUTO) 328 K/uL (130-430); RED BLOOD CELL COUNT(AUTO) 4.18 MIL/uL (4.2-6.2); RED CELL DISTRIBUTION WIDTH 13.3 % (9.0-15.0); WHITE BLOOD COUNT (AUTO) 7.1 K/uL (4.8-10.8)
[2021-07-01 06:07] LABS: CALCIUM 9.1 mg/dL (8.4-11.0); CREATININE 0.87 mg/dL (0.55-1.30); POTASSIUM 3.4 mmol/L (3.5-5.1)
[2021-07-01 06:18] LABS: ALBUMIN 4.4 g/dL (3.4-4.8); TOTAL BILIRUBIN 0.3 mg/dL (0.0-1.0)
[2021-07-01 06:30] VITALS: BP_SYST 128
--- NOTE | 2021-07-01 06:30 | NUR ---
Patient given written and verbal discharge instructions and verbalizes understanding. ER MD discussed with patient the results and treatment provided. Patient in stable condition. ID arm band removed. IV catheter removed intact and dressing applied, no active bleeding. Rx of Prednisone given. Patient educated on pain management and to follow up with PMD. Pain Scale 0/10. Opportunity for questions provided and answered. Medication side effect fact sheet provided.
== END 2021-07-01 06:30 | disposition home or self-care (01) ==
LOC: SED 01:42
DX: J44.1 Chronic obstructive pulmonary disease with (acute) exacerbation (principal); D64.9 Anemia, unspecified; R06.02 Shortness of breath; I10 Essential (primary) hypertension; Z20.822 Contact with and (suspected) exposure to COVID-19
CPT/HCPCS: 36415; 71045; 80053; 84484; 85025; 87426; 94640; 96374; 99284; J2930; J7612

== ENCOUNTER 2022-05-24 09:28 | Inpatient (IN) | payer OTHER ==
[~2022-05-24] VITALS: Ht 190.5 cm; Wt 130.2 kg
[~2022-05-24 09:28] MED LIST changes: +PRED20TA PO
[2022-05-24 10:12] VITALS: BP_SYST 145
[2022-05-24 11:59] LABS: BASOPHILS # (AUTO) 0.1 K/uL (0.0-0.2); BASOPHILS % (AUTO) 0.8 % (0.0-2.0); EOSINOPHILS # (AUTO) 0.2 K/uL (0.0-0.4); EOSINOPHILS % (AUTO) 1.7 % (0.0-4.0); HEMATOCRIT 32.9 % (36-54); HEMOGLOBIN 10.5 g/dL (14.0-18.0); LYMPHOCYTES # (AUTO) 2.5 K/uL (1.0-5.5); LYMPHOCYTES % (AUTO) 16.7 % (20.5-51.5); MEAN CORPUSCULAR HEMOGLOBIN 25 pg (27-31); MEAN CORPUSCULAR HGB CONC 32 % (32-36); MEAN CORPUSCULAR VOLUME 79 fL (79.0-98.0); MONOCYTES % (AUTO) 7.1 % (1.7-9.3); NEUTROPHILS # (AUTO) 10.9 K/uL (1.8-7.7); NEUTROPHILS % (AUTO) 73.7 % (40.0-70.0); PLATELET COUNT (AUTO) 308 K/uL (130-430); RED BLOOD CELL COUNT(AUTO) 4.18 MIL/uL (4.2-6.2); RED CELL DISTRIBUTION WIDTH 14.1 % (9.0-15.0); WHITE BLOOD COUNT (AUTO) 14.8 K/uL (4.8-10.8)
[2022-05-24 12:18] LABS: CALCIUM 9.7 mg/dL (8.4-11.0); CREATININE 1.29 mg/dL (0.55-1.30)
[2022-05-24 12:24] LABS: TOTAL BILIRUBIN 0.5 mg/dL (0.0-1.0)
--- NOTE | 2022-05-24 13:06 | NUR ---
URINE SENT TO LAB.
[2022-05-24 13:09] LABS: BILIRUBIN,URINE 1+ (NEGATIVE); CLARITY/URINE CLEAR (CLEAR); COLOR,URINE YELLOW (YELLOW); GLUCOSE,URINE NEGATIVE (NEGATIVE); KETONES,URINE TRACE (NEGATIVE); LEUKOCYTE ESTERASE ,URINE NEGATIVE (NEGATIVE); NITRITE, URINE NEGATIVE (NEGATIVE); PROTEIN URINE TRACE (NEGATIVE)
[2022-05-24 13:15] LABS: BLOOD, URINE TRACE (NEGATIVE)
[2022-05-24 13:22] LABS: BACTERIA,URINE None Seen /HPF (None Seen); MUCUS,URINE 1+ /LPF (None Seen); WBC,URINE 0-3 /HPF (0-3)
--- NOTE | 2022-05-24 13:25 | NUR ---
Dr Bean evaluating patient in the triage room
[2022-05-24] MEDS ORDERED: IPRATROPIUM/ALBUTEROL SULFATE 3 ML AMPUL.NEB (DUONEB) INH ONE (13:30)
[2022-05-24] MEDS ORDERED: NS 500 ML IV ONE (13:45)
[2022-05-24 14:24] LABS: PROTHROMBIN TIME 10.1 SECS (9.5-12.5)
--- NOTE | 2022-05-24 15:00 | NUR ---
Patient to ER bed 05 to gown for evaluation. Side rails up.
[2022-05-24] MEDS ORDERED: iohexoL 350 mgI/mL, 100 ML INFUS..BTL IV ONE (17:23)
--- NOTE | 2022-05-24 18:32 | NUR ---
Pt C/O diarrhea w/ blood X thanksgiving No other S/S noted AOX4 VSS Able to make needs known Isaac continue to monitor
[2022-05-24] MEDS ORDERED: cefTRIAXone 1 GM VIAL IM ONE (19:30)
[2022-05-24] MEDS ORDERED: metroNIDAZOLE 500 mg/NS 100 ML IV ONE (19:30)
--- NOTE | 2022-05-24 19:40 | NUR ---
Report received from CARINA Orozco; assuming care of patient at this time.
--- NOTE | 2022-05-24 19:50 | NUR ---
Patient A/ox4, VSS, ambulatory, resp even and unlabored. Patient resting in bed with safety precautions in place. Nad noted at this time.
--- NOTE | 2022-05-24 20:26 | NUR ---
Admit bed requested Patient will be admitted to care of . Admitted to MED SURG unit. Diagnosis : ABD PAIN, COLITIS Inpatient (Yes or No) Y Observation (Yes or No) N Orientation concerns or request close to nursing station (Yes or No) N Covid Status : PENDING Med Rec Completed (Yes of No)
[2022-05-24] MEDS ORDERED: LEVOFLOXACIN 250 MG/D5W 50 ML IV ONE (20:45)
--- NOTE | 2022-05-24 22:50 | NUR ---
Patient will be admitted to care of [facility]. Admitted to MED SURG unit. Will go to room 116 A. Belongings list completed. Complete and up to date summary report printed. SBAR report given to CARINA To at bedside with opportunity for questions.
--- NOTE | 2022-05-24 23:30 | NUR ---
Received patient for admission assigned to room 117B coming from Emergency Department. A 66 years old male patient with Chief complaint of Abdominal pain and diarrhea. Diagnosed with Abdominal pain and Colitis. History of COPD, hypertension, brain tumor (resolved), renal stones (resolved) Alert and Oriented x4, Angolan speaking. Ambulatory with BRP. Able to walk independently. On continuous oxygen supply at 4 LPM via nasal cannula. O2 saturation of 99%. Diet NPO. Under the care of Nicci Hagan. Full code status, Covid19 negative. Skin intact however skin is dry. Patient comfortably lying in bed. Denies pain at this moment. Health teachings given, Unit rounds scheduling.
[2022-05-25 00:15] VITALS: BP_SYST 152
[2022-05-25] MEDS ORDERED: metroNIDAZOLE 500 mg/NS 100 ML IV ONE ×2 (00:33→05:01)
[2022-05-25] MEDS ORDERED: LEVOFLOXACIN 250 MG/D5W 50 ML IV ONE (00:34)
[2022-05-25] MEDS ORDERED: cefTRIAXone 1 GM IVPB PREMIX 50 ML IV ONE (00:34)
--- NOTE | 2022-05-25 03:30 | NUR ---
inserted IV access on the left wrist with gauge 24. Patient is a hard stick. Will request a midline to the Doctor if permitted.
--- NOTE | 2022-05-25 05:27 | NUR ---
CONSULTATION PAGED/CALLED Reason for Consultation: COLLITIS Person Who was Notified: KEKE Consulting Physician: MOOKIE Telegraph Office Manager Specialty: ID Ordering Physician: SANIA
[2022-05-25] MEDS ORDERED: metroNIDAZOLE 500 mg/NS 100 ML IV SCH (06:00)
--- NOTE | 2022-05-25 07:00 | NUR ---
Report received from retail shift supervisor RN for continuity of care. Patient stable.
[2022-05-25 08:08] VITALS: BP_SYST 136
[2022-05-25] MEDS ORDERED: BUDESONIDE 0.5 MG/2 ML AMPUL.NEB INH PRN (10:15)
[2022-05-25] MEDS ORDERED: ALBUTEROL SULFATE 0.083% 2.5 MG/3 ML VIAL.NEB INH PRN (10:15)
[2022-05-25] MEDS ORDERED: NALOXONE HCL 0.4 MG/ML AMP (NARCAN) IVP PRN ×2 (10:15)
[2022-05-25] MEDS ORDERED: HYDROcodone/ACETAMIN 5-325 MG TAB (NORCO/ VICODIN) PO PRN (10:15)
[2022-05-25] MEDS: HYDROcodone/ACETAMIN 10-325 MG TAB PO PRN ×2 (10:49→16:26)
[2022-05-25 12:53] VITALS: BP_SYST 139
[2022-05-25] MEDS: metroNIDAZOLE 500 mg/NS 100 ML IV SCH ×2 (14:55→22:33)
[2022-05-25] MEDS ORDERED: BISACODYL 5 MG TABLET.DR (DULCOLAX) ONE ×2 (16:25→16:30)
[2022-05-25] MEDS ORDERED: BISACODYL 5 MG TABLET.DR (DULCOLAX) PO ONE (17:00)
[2022-05-25 17:22] VITALS: BP_SYST 137
[2022-05-25] MEDS ORDERED: GOLYTELY / COLYTE SOLUTION 4 LITERS PO ONE (18:00)
--- NOTE | 2022-05-25 19:01 | NUR ---
Report given to chicle grinder feeder RN for continuity of care. Patient stable condition.
[2022-05-25 20:00] VITALS: BP_SYST 146
[2022-05-25] MEDS ORDERED: LEVOFLOXACIN 250 MG/D5W 50 ML IV SCH (21:00)
[2022-05-26 02:07] VITALS: BP_SYST 135
[2022-05-26 06:41] LABS: BASOPHILS % (AUTO) 0.4 % (0.0-2.0); EOSINOPHILS # (AUTO) 0.2 K/uL (0.0-0.4); EOSINOPHILS % (AUTO) 1.9 % (0.0-4.0); LYMPHOCYTES % (AUTO) 9.5 % (20.5-51.5); MEAN CORPUSCULAR HEMOGLOBIN 25 pg (27-31); MEAN CORPUSCULAR HGB CONC 32 % (32-36); MEAN CORPUSCULAR VOLUME 79 fL (79.0-98.0); MONOCYTES # (AUTO) 0.8 K/uL (0.0-1.0); NEUTROPHILS # (AUTO) 8.3 K/uL (1.8-7.7); NEUTROPHILS % (AUTO) 80.2 % (40.0-70.0); PLATELET COUNT (AUTO) 331 K/uL (130-430); RED BLOOD CELL COUNT(AUTO) 3.95 MIL/uL (4.2-6.2); WHITE BLOOD COUNT (AUTO) 10.4 K/uL (4.8-10.8)
[2022-05-26 07:07] LABS: CALCIUM 8.9 mg/dL (8.4-11.0); CREATININE 1.2 mg/dL (0.55-1.30)
[2022-05-26] MEDS: metroNIDAZOLE 500 mg/NS 100 ML IV SCH (07:10)
[2022-05-26 07:21] LABS: PROTHROMBIN TIME 10.3 SECS (9.5-12.5)
[2022-05-26 08:00] VITALS: BP_SYST 140
[2022-05-26] MEDS ORDERED: FUROSEMIDE 20 MG TABLET PO SCH (09:00)
[2022-05-26] MEDS ORDERED: FERROUS GLUCONATE 324 MG TABLET PO SCH (09:00)
[2022-05-26] MEDS ORDERED: predniSONE 20 MG TABLET PO SCH (09:00)
[2022-05-26] MEDS ORDERED: amLODIPine BESYLATE 10 MG TABLET PO SCH (09:00)
[2022-05-26] MEDS ORDERED: MEPERIDINE 100 MG INJ. 100 MG/ML VIAL ONE (11:11)
[2022-05-26 12:00] VITALS: BP_SYST 135
[2022-05-26] MEDS: MIDAZOLAM HCL 5 MG/5 ML VIAL ONE ×3 (12:15→12:30)
[2022-05-26] MEDS ORDERED: METOCLOPRAMIDE HCL 10 MG/2 ML VIAL ONE (12:20)
[2022-05-26] MEDS ORDERED: LACTOBACILLUS RHAMNOSUS GG 1 CAP CAPSULE PO ONE (14:00)
[2022-05-26] MEDS ORDERED: LACT1CAP57 PO (14:08)
[2022-05-26] MEDS ORDERED: VANC25SO PO (14:08)
[2022-05-26 16:00] VITALS: BP_SYST 139
[2022-05-26] MEDS ORDERED: VANCOMYCIN HCL ORAL SOLUTION 125 MG/5 ML, 150 ML PO SCH (17:00)
[2022-05-26 17:43] VITALS: BP_SYST 139
--- NOTE | 2022-05-26 20:27 | NUR ---
NPO THIS MORNING FOR PROCEDURE RETURNED AROUND NOON. TOLERATED COLONOSCOPY WELL. EXTREMELY DROWSY DUE TO SEDATION GIVEN DURING PROCEDURE. AFEBRILE VS NORMAL. ORDERS TO BE DISCHARGED. AT END OF SHIFT. CALLED AT PHARMACY AWAITING MEDICATION'S DISCHARGE INSTRUCTION'S GIVEN. INSTRUCTED TO COME BACK TO ER FOR FEVER SYMPTOMS. OF INFECTION BLEEDING. INSTRUCTED TO FOLLOW UP WITH PRIMARY DOCTOR AND HIS GI DOCTOR WITH INFORMATION TELEPHONE NUMBER FOR GI DOCTOR.
--- NOTE | 2022-05-26 20:34 | NUR ---
D/C Patient home via private vehicle, at the bedside. Patient given medication reconciliation form and D/C instructions. Exit Care provided. Patient verbalized understanding. MD discussed with patient the results and treatment provided. Ambulatory with steady gait for discharge to home. Patient in stable condition, ID band removed. IV catheter discontinued, with no bleeding at the site. Rx of given. All belongings sent with patient.
[2022-05-27] MEDS ORDERED: LACTOBACILLUS RHAMNOSUS GG 1 CAP CAPSULE PO SCH (09:00)
== END 2022-05-26 20:30 | disposition home or self-care (01) | DRG 872 ==
LOC: SED 09:28 → SMU 20:17
PROVIDERS: ADMIT Internal Medicine; ATTEND Internal Medicine
PROC: 0DBN8ZZ Excision of Sigmoid Colon, Via Natural or Artificial Opening Endoscopic (ICD-10-PCS; 2022-05-26)
PROC: 0DBL8ZZ Excision of Transverse Colon, Via Natural or Artificial Opening Endoscopic (ICD-10-PCS; 2022-05-26)
PROC: 0DBK8ZX Excision of Ascending Colon, Via Natural or Artificial Opening Endoscopic, Diagnostic (ICD-10-PCS; principal; 2022-05-26 11:30)
PROC: 0DBH8ZX Excision of Cecum, Via Natural or Artificial Opening Endoscopic, Diagnostic (ICD-10-PCS; 2022-05-26 11:30)
DX: A41.9 Sepsis, unspecified organism (principal); A04.72 Enterocolitis due to Clostridium difficile, not specified as recurrent; N39.0 Urinary tract infection, site not specified; J44.9 Chronic obstructive pulmonary disease, unspecified; E66.01 Morbid (severe) obesity due to excess calories; K76.0 Fatty (change of) liver, not elsewhere classified; K63.5 Polyp of colon; K64.8 Other hemorrhoids; Z20.822 Contact with and (suspected) exposure to COVID-19; D63.8 Anemia in other chronic diseases classified elsewhere; I10 Essential (primary) hypertension; Z68.35 Body mass index [BMI] 35.0-35.9, adult; Z99.81 Dependence on supplemental oxygen; Z90.49 Acquired absence of other specified parts of digestive tract; Z87.442 Personal history of urinary calculi
CPT/HCPCS: 36415; 45380; 45385; 71045; 74175; 76376; 80048; 80053; 81000; 82272; 83690; 83880; 84484; 85025; 85610-TC; 85730-TC; 86480; 87045-TC; 87046; 87177; 87230-TC; 88305; 89055; 93005; 94640; 94760; 99285; J0696; J1956; J2175; J2250; J2765; J3490; J7030; J7040; J7060; J7613; Q9967